=== PATIENT | female | born 1945 | race Caucasian/White ===

== ENCOUNTER 2021-10-15 14:52 | Emergency (ER) | payer OTHER ==
--- OUTSIDE RECORDS SUMMARY | 2021-10-15 14:56 | XMS REPORT | Continuity of Care Document ---
:1945 Author Organization [facility] t Address [address] [place] [address] Care Team Providers Name Role Phone Unavailable Unavailable Unavailable Problems This patient has no known problems. Allergies, Adverse Reactions, Alerts Allergy Allergy Status Severity Reaction(s) Onset Inactive Treating Comm ents Source Name Type Date Date Clinician NO KNOWN Allergy Active SLEH ALLERGIE S Medications This patient has no known medications. Vital Signs Vital Name Observation Time Observation Value Comments Source WEIGHT 2020-05-17 00:00:00 59.058 kg Procedures This patient has no known procedures. Encounters Start End Encounter Admission Attending Care Care Encounter Source Date/Time Date/Time Type Type Clinicians Facility Department ID 2020-05-17 2020-05-17 Outpatient [facility] [id number] [address] [facility] 00:00:00 00:00:00 Results This patient has no known results.
[2021-10-15] MEDS ORDERED: TETANUS & DIPHTHERIA TOX,ADULT 0.5 ML VIAL ONE (15:25)
--- NOTE | 2021-10-15 15:48 | RAD REPORT ---
EXAM DESCRIPTION: CT - CTHCSPWOC - 10/15/2021 3:35 pm CLINICAL HISTORY: Trauma, head and neck injury. fall injury, scalp laceration COMPARISON: No comparisons TECHNIQUE: Axial 5 mm thick images of the head were obtained. Axial 2 mm thick images of the cervical spine were obtained with sagittal and coronal reconstruction images generated and reviewed. All CT scans are performed using dose optimization technique as appropriate and may include automated exposure control or mA/KV adjustment according to patient size. FINDINGS: CT HEAD WITHOUT CONTRAST: Moderate acute subarachnoid hemorrhage is present in the right temporal region. There is likely assoc iated subdural blood along the right middle cranial fossa measuring up to 9 mm in maximum thickness. Subarachnoid hemorrhage is also present on the left posterior frontal region.No measurable midline sh ift is evident.There is a large left posterior scalp hematoma measuring 15 mm in maximum thickness. Chronic sinusitis of the right maxillary antrum with mild expansion seen.The paranasal sinuses and ma stoids are otherwise clear.No skull base fracture seen. No calvarial fracture seen. CT CERVICAL SPINE WITHOUT CONTRAST: No fracture or subluxation.Moderate lower cervical degenerative changes are present.No prevertebral s oft tissues swelling is identified. IMPRESSION: Acute bilateral subarachnoid hemorrhage is present, greater on the right.A subdural samson lisa is likely also present along the right temporal convexity measuring up to 9 mm in thickness. No measurable right to left midline shift evident. No cervical spine fracture. The findings were discussed with Dr. Carreon in the ER On 10/15/2021 at 3:44 p.m. by telephone.
[2021-10-15] MEDS ORDERED: KETAMINE HCL 500 MG/5 ML VIAL ONE (16:06)
[2021-10-15] MEDS ORDERED: LEVETIRACETAM 500 MG/5 ML VIAL IV ONE (16:07)
[2021-10-15] MEDS ORDERED: NA CHLORIDE 0.9% 100 ML ONE (16:08)
[2021-10-15 16:09] LABS: Absolute Lymphocytes (CBC) 1.2 K/uL (0.7-4.9); Hematocrit 36.8 % (36.0-45.0); Lymphocytes % 9.8 % (15.3-44.8); MPV 6.5 fL (7.6-11.3); RBC Red Blood Cell Count 3.82 M/uL (3.86-4.86)
--- NOTE | 2021-10-15 16:09 | ER ---
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 + head ll1 injury and laceration, bleeding controlled. No LOC. Coronavirus screen: Vaccine status: Patient reports receiving the 2nd dose of the covid vaccine. Client denies travel out of the [place] in the last 14 days. At this time, the client does not indicate any symptoms associated with coronavirus-19. Ebola Screen: Patient denies travel to an Ebola-affected area in the 21 days before illness onset. Initial Sepsis Screen: Does the patient meet any 2 criteria? HR > 90 bpm. No. Patient's initial sepsis screen is negative. Does the patient have a suspected source of infection? Yes: Skin breakdown/wound. Risk Assessment: Do you want to hurt yourself or someone else? Patient reports no desire to harm self or others. Onset of symptoms was October 15, 2021. 15:06 Method Of Arrival: Ambulatory ll1 15:06 Acuity: ARBEN 3 ll1 15:35 Care prior to arrival: None. Mechanism of Injury: Fall from standing position. ab2 approximately 5 feet. Trauma event details:. Triage Assessment: 15:30 General: Appears in no apparent distress. Behavior is calm, cooperative, appropriate ab2 for age. Pain: Denies pain. EENT: No deficits noted. No signs and/or symptoms were reported regarding the EENT system. Neuro: Level of Consciousness is awake, alert, obeys commands, Oriented to person, place, time, situation, Appropriate for age Marketing Agent are equal bilaterally Moves all extremities. Gait is steady, Pt state she has not had a fall before. Pt did admit to ETOH use prior to this fall. Neuro: Denies headache. Cardiovascular: Reports None Denies chest pain, shortness of breath, Heart tones S1 S2 present Patient's skin is warm and dry. Respiratory: No deficits noted. Airway is patent Breath sounds are clear bilaterally. Denies shortness of breath. GI: No deficits noted. No signs and/or symptoms were reported involving the gastrointestinal system. Abdomen is flat, round non-distended, Bowel sounds present X 4 quads. Abd is soft and non tender Abd is soft Abd is non tender X 4 quads. : No deficits noted. No signs and/or symptoms were reported regarding the genitourinary system. Derm: Wound noted left adventism. Musculoskeletal: No deficits noted. No signs and/or symptoms reported regarding the musculoskeletal system. Trauma Activation: Alert Physician: ED Physician; Name: ; Notified At: ; Arrived At: Physician: General Surgeon; Name: ; Notified At: ; Arrived At: Physician: Radiology; Name: ; Notified At: ; Arrived At: Physician: Respiratory; Name: ; Notified At: ; Arrived At: Physician: Lab; Name: ; Notified At: ; Arrived At: Historical: - Allergies: 15:07 No Known Allergies; ll1 - PMHx: 15:07 Hypothyroidism; ll1 - PSHx: 15:07 None; ll1 - Immunization history:: Client reports receiving the 2nd dose of the Covid vaccine. - Social history:: Smoking status: Patient reports the use of cigarette tobacco products, smokes one-half pack cigarettes per day. - Immunization history: Last tetanus immunization: unknown. Screenin:28 Abuse screen: Denies threats or abuse. Denies injuries from another. Nutritional ab2 screening: No deficits noted. Tuberculosis screening: No symptoms or risk factors identified. Fall Risk Fall in past 12 months (25 points). No secondary diagnosis (0 pts). No IV (0 pts). Ambulatory Aid- None/Bed Rest/Nurse Assist (0 pts). Gait- Normal/Bed Rest/Wheelchair (0 pts) Mental Status- Oriented to own ability (0 pts). Total Bailey Fall Scale indicates Low Risk Score (25-44 pts). Fall prevention measures have been instituted. Side Rails Up X 2 Placed close to Nursing Station Frequent Obs/Assesments occuring Family Present and informed to notify staff if they need to leave bedside As available Patient and Family Educated on Fall Prevention Program and strategies. Primary Survey: 15:28 NO uncontrolled hemorrhage observed. A: The patient is alert. Airway: patent. ab2 Breathing/Chest: Respiratory pattern: regular. Circulation: Heart tones present. Pulses: palpable right radial artery and left radial artery. Disability Alert. Exposure/Environment: There is no evidence of uncontrolled external bleeding. Obvious injury(ies) are noted at this time: Pt has laceration to left side of scalp. Reassessment Airway Airway Patent Breathing/Chest Respiratory pattern Regular Respiratory effort Spontaneous Unlabored Breath sounds Clear Chest inspection Symmetrical Circulation Heart tones Present Pulses Palpable Color [place] Disability Alert. Secondary Survey: 16:12 HEENT: Head Other Pt has small lac noted L parietal region of her head. Currently ic1 denies headache, blurred vision, or facial droop. Gastrointestinal: No deficits noted. : No deficits noted. Musculoskeletal: No deficits noted. Assessment: 15:37 General: Appears in no apparent distress. Behavior is calm, cooperative, appropriate ab2 for age, Smells of alcohol. Pain: Denies pain. Neuro: No deficits noted. Level of Consciousness is awake, alert, obeys commands, Oriented to person, place, time, situation, Appropriate for age Marketing Agent are equal bilaterally Moves all extremities. Gait is unsteady, Speech is normal, Facial symmetry appears normal. Cardiovascular: No deficits noted. Denies chest pain, shortness of breath, Heart tones S1 S2 present Patient's skin is warm and dry. Respiratory: No deficits noted. Breath sounds are clear Denies cough, shortness of breath. GI: No deficits noted. No signs and/or symptoms were reported involving the gastrointestinal system. Abdomen is flat, non-distended, Bowel sounds present X 4 quads. Abd is soft and non tender X 4 quads. Patient currently denies abdominal pain. : No deficits noted. No signs and/or symptoms were reported regarding the genitourinary system. EENT: No deficits noted. No signs and/or symptoms were reported regarding the EENT system. Derm: Wound noted left adventism. Musculoskeletal: No deficits noted. No signs and/or symptoms reported regarding the musculoskeletal system. Vital Signs: 15:06 BP 169 / 108; Pulse 95; Resp 17; Temp 96.5; Pulse Ox 100% ; Weight 54.88 kg; Height 5 ll1 ft. 7 in. (170.18 cm); Pain 0/10; 16:12 BP 142 / 85; Pulse 84; Resp 18; Pulse Ox 100% on R/A; ic1 16:53 BP 149 / 82; Pulse 81; Resp 18; Pulse Ox 100% ; ic1 17:06 BP 137 / 70; Pulse 91; Resp 17; Pulse Ox 97% on R/A; Pain 2/10; ab2 17:30 BP 140 / 70; Pulse 89; Resp 17; Pulse Ox 98% on R/A; ab2 17:43 BP 139 / 68; Pulse 90; Resp 16; Pulse Ox 98% on R/A; ab2 18:35 BP 159 / 68; Pulse 101; Resp 17; Pulse Ox 98% on R/A; Pain 0/10; ab2 19:00 BP 149 / 69; Pulse 81; Resp 17; Pulse Ox 99% on R/A; Pain 0/10; ab2 19:30 BP 151 / 81; Pulse 79; Resp 17; Pulse Ox 99% on R/A; Pain 0/10; ab2 19:45 BP 161 / 81; Pulse 79; Resp 17; Pulse Ox 100% on R/A; Pain 0/10; ab2 20:00 BP 157 / 77; Pulse 78; Resp 17; Pulse Ox 99% on R/A; Pain 0/10; ab2 20:30 BP 160 / 76; Pulse 83; Resp 16; Pulse Ox 100% on R/A; Pain 0/10; ab2 15:06 Body Mass Index 18.95 (54.88 kg, 170.18 cm) ll1 Rios Coma Score: 15:35 Eye Response: spontaneous(4). Verbal Response: oriented(5). Motor Response: obeys ab2 commands(6). Total: 15. Trauma Score (Adult): 15:35 Eye Response: spontaneous(1); Verbal Response: oriented(1); Motor Response: obeys ab2 commands(2); Systolic BP: > 89 mm Hg(4); Respiratory Rate: 10 to 29 per min(4); Temple Score: 15; Trauma Score: 12 ED Course: 14:56 Patient arrived in ED. mr 15:07 Triage completed. ll1 15:08 Arm band placed on Patient placed in an exam room, on a stretcher. ll1 15:09 Erasmo Sanchez NP is PHCP. pm1 15:09 Dheeraj Hua MD is Attending Physician. pm1 15:27 Aditya Hernandez is Primary Nurse. ab2 15:35 CT Head C Spine In Process Unspecified. EDMS 15:36 Patient has correct armband on for positive identification. Bed in low position. Call ab2 light in reach. Side rails up X2. Adult w/ patient. 15:36 No provider procedures requiring assistance completed. ab2 15:37 Patient maintains SpO2 saturation greater than 95% on room air. Thermoregulation: warm ab2 blanket given to patient. 16:00 CMP Sent. ic1 16:00 CBC with Diff Sent. ic1 16:00 PT-INR Sent. ic1 16:00 COVID-19 (Coronavirus) Document "Date of Onset" if Symptomatic Sent. ic1 16:00 Inserted saline lock: 20 gauge in right antecubital area, using aseptic technique. ic1 Blood collected. 17:45 initiated transfer to [facility], pt accepted in transfer to [facility] by dr judah matt, admin approval given by Jayda Heredia RN. 20:50 Report given to EMS at bedside. Warm blanket given. Daughter at bedside. Daughter to ab2 follow patient during transfer. 20:51 Report given to Marcia at [facility] ED. ab2 Administered Medications: 15:27 Drug: Tetanus-Diphtheria Toxoid Adult 0.5 ml {Watch Dial Stoner: [place]. Exp: ic1 02/16/2023. Lot #: [id number]. } Route: IM; Site: left deltoid; 16:10 Drug: Keppra (levETIRAcetam) 1000 mg Route: IV; Rate: calculated rate; Site: right ic1 antecubital; 16:47 Drug: Lidocaine (1 %) 5 ml {Note: given per Chelo's, PROCESS DEVELOPMENT MANAGER.} Volume: 5 ml; Route: jh5 Infiltration; 18:10 Drug: NS 0.9% 1000 ml Route: IV; Rate: 100 ml/hr; Site: right antecubital; ic1 Intake: 15:35 PO: 0ml; Total: 0ml. ab2 Outcome: 16:08 ER care complete, transfer ordered by . pm1 20:51 Patient left the ED. mw2 Signatures: Dispatcher [employer] EDMS Ximena Orantes Mary mr DanielErasmo, PROCESS DEVELOPMENT MANAGER PROCESS DEVELOPMENT MANAGER pm1 Geraldine Pike mw2 Nino Barry RN RN 1 Jemima Lara RN RN 5 Ana Rico RN RN ic1 Bleininger, Aditya ab2
--- NOTE | 2021-10-15 16:09 | EDPHYS ---
Physician Documentation [facility] Name: Casi Dunn Age: 76 yrs Sex: Female : 1945 Arrival Date: 10/15/2021 Time: 14:56 Bed 25 Private MD: ED Physician Dheeraj Hua HPI: 10/15 15:16 This 76 yrs old Female presents to ER via Ambulatory with complaints of Fall Injury. pm1 15:16 Onset: The symptoms/episode began/occurred just prior to arrival. Associated injuries: pm1 The patient sustained injury to the head, laceration, of the left side of the back of head. The patient has not experienced similar symptoms in the past. The patient has not recently seen a physician. Patient was walking down stairs in her home after drinking alcohol and she slipped and hit her head on the stairs. No LOC or neck pain. Patient was able to get up after fall. Presenting to the ER with laceration to scalp and headache. Historical: - Allergies: 15:07 No Known Allergies; ll1 - PMHx: 15:07 Hypothyroidism; ll1 - PSHx: 15:07 None; ll1 - Immunization history:: Client reports receiving the 2nd dose of the Covid vaccine. - Social history:: Smoking status: Patient reports the use of cigarette tobacco products, smokes one-half pack cigarettes per day. - Immunization history: Last tetanus immunization: unknown. ROS: 15:16 Constitutional: Negative for fever, chills, and weight loss, Cardiovascular: Negative pm1 for chest pain, palpitations, and edema, Respiratory: Negative for shortness of breath, cough, wheezing, and pleuritic chest pain, Abdomen/GI: Negative for abdominal pain, nausea, vomiting, diarrhea, and constipation, MS/Extremity: Negative for injury and deformity. 15:16 Eyes: Negative for injury, pain, redness, and discharge, ENT: Negative for injury, pain, and discharge. 15:16 Neck: Negative for pain with movement, pain at rest, tenderness, bony tenderness. 15:16 Skin: Positive for laceration(s), of the left side of the back of head. 15:16 Neuro: Positive for headache, Negative for dizziness, numbness, tingling, weakness. 15:16 All other systems are negative. Exam: 15:16 Constitutional: This is a well developed, well nourished patient who is awake, alert, pm1 and in no acute distress. 15:16 Back: No spinal tenderness. No costovertebral tenderness. Full range of motion. 15:16 Head/face: Noted is no obvious of injury or deformity except contusion, that is superficial, of the left side of the back of head, a laceration(s), of the left side of the back of head, tenderness, of the left side of the back of head. 15:16 Eyes: Exam is negative for acute changes, Periorbital structures: appear normal, Pupils: no acute changes, normal size, normal reaction to light, Extraocular movements: no acute changes, Conjunctiva: no acute changes, no injection, Sclera: no acute changes, icterus, is not appreciated. 15:16 ENT: Exam is negative for acute changes, External ear(s): are unremarkable, Ear canal(s): are normal, TM's: are normal, Mouth: Lips: normal, moist, Oral mucosa: normal, pink and intact, moist. 15:16 Neck: External neck: no acute changes, C-spine: vertebral tenderness, is not appreciated. 15:16 Chest/axilla: Exam negative for Inspection: normal, Palpation: is normal, no crepitus, no tenderness. 15:16 Cardiovascular: Exam negative for acute changes, Rate: normal, Rhythm: regular, Pulses: no pulse deficits are appreciated. 15:16 Respiratory: Exam negative for acute changes, respiratory distress, shortness of breath, Breath sounds: are clear throughout. 15:16 Abdomen/GI: Inspection: abdomen appears normal, Palpation: abdomen is soft and non-tender, in all quadrants. 15:16 Skin: Appearance: normal except for affected area, injury, laceration(s), the wound is approximately 2 cm(s), of the left side of the back of head, that can be described as clean, no foreign body, irregular. 15:16 Neuro: Exam negative for acute changes, Orientation: is normal, Mentation: is normal, Cranial nerves: CN II- XII are normal as tested, Cerebellar function: normal finger to nose testing, heel to thomas testing is normal, Motor: moves all fours, strength is 5/5 in all extremities, Sensation: no obvious gross deficits. Vital Signs: 15:06 BP 169 / 108; Pulse 95; Resp 17; Temp 96.5; Pulse Ox 100% ; Weight 54.88 kg; Height 5 ll1 ft. 7 in. (170.18 cm); Pain 0/10; 16:12 BP 142 / 85; Pulse 84; Resp 18; Pulse Ox 100% on R/A; ic1 16:53 BP 149 / 82; Pulse 81; Resp 18; Pulse Ox 100% ; ic1 17:06 BP 137 / 70; Pulse 91; Resp 17; Pulse Ox 97% on R/A; Pain 2/10; ab2 17:30 BP 140 / 70; Pulse 89; Resp 17; Pulse Ox 98% on R/A; ab2 17:43 BP 139 / 68; Pulse 90; Resp 16; Pulse Ox 98% on R/A; ab2 18:35 BP 159 / 68; Pulse 101; Resp 17; Pulse Ox 98% on R/A; Pain 0/10; ab2 19:00 BP 149 / 69; Pulse 81; Resp 17; Pulse Ox 99% on R/A; Pain 0/10; ab2 19:30 BP 151 / 81; Pulse 79; Resp 17; Pulse Ox 99% on R/A; Pain 0/10; ab2 19:45 BP 161 / 81; Pulse 79; Resp 17; Pulse Ox 100% on R/A; Pain 0/10; ab2 20:00 BP 157 / 77; Pulse 78; Resp 17; Pulse Ox 99% on R/A; Pain 0/10; ab2 20:30 BP 160 / 76; Pulse 83; Resp 16; Pulse Ox 100% on R/A; Pain 0/10; ab2 15:06 Body Mass Index 18.95 (54.88 kg, 170.18 cm) ll1 Rios Coma Score: 15:35 Eye Response: spontaneous(4). Verbal Response: oriented(5). Motor Response: obeys ab2 commands(6). Total: 15. Trauma Score (Adult): 15:35 Eye Response: spontaneous(1); Verbal Response: oriented(1); Motor Response: obeys ab2 commands(2); Systolic BP: > 89 mm Hg(4); Respiratory Rate: 10 to 29 per min(4); [place] Score: 15; Trauma Score: 12 Laceration: 17:18 Wound Repair of 2cm ( 0.8in ) subcutaneous laceration to left side of the back of head. pm1 Irregularly shaped.. Distal neuro/vascular/tendon intact. Anesthesia: Local anesthetic administered with 3 mls of 1% lidocaine. Wound prep: Extensive cleansing with hibiclenz by me, Wound irrigation with saline by me, Wound explored extensively, Copious irrigation. Skin closed with 5 4-0 Prolene using simple sutures and sterile technique. Dressed with 4x4's. Patient tolerated well. MDM: 15:15 Patient medically screened. pm1 15:50 Counseling: I had a detailed discussion with the patient and/or guardian regarding: the pm1 historical points, exam findings, and any diagnostic results supporting the discharge/admit diagnosis, radiology results, the need to transfer to another facility, [facility] does not immediately have the required specialist, Transfer required due to traumatic brain injury, speciality required. 16:03 Data reviewed: vital signs. Data interpreted: Pulse oximetry: on room air is 100 %. pm1 Interpretation: normal. 16:29 Physician consultation: Marty Mckee MD regarding regarding transfer, patient's pm1 condition, and will see patient ER to ER transfer. 10/15 15:43 Order name: PT-INR; Complete Time: 16:20 pm1 10/15 15:43 Order name: CBC with Diff; Complete Time: 16:20 pm1 10/15 15:16 Order name: CT Head C Spine; Complete Time: 15:50 pm1 10/15 15:43 Order name: CMP; Complete Time: 16:33 pm1 10/15 15:43 Order name: COVID-19 (Coronavirus) Document "Date of Onset" if Symptomatic pm10/15 15:16 Order name: Wound Care pm10/15 15:43 Order name: IV Saline Lock; Complete Time: 16:00 pm10/15 15:52 Order name: NPO; Complete Time: 16:00 pm1 10/15 16:34 Order name: Dressing - Wound; Complete Time: 16:47 pm1 10/15 16:34 Order name: Gloves, Sterile; Complete Time: 16:47 pm1 10/15 16:34 Order name: Prolene, Sutures; Complete Time: 16:47 pm10/15 16:34 Order name: Setup Suture Tray; Complete Time: 16:47 pm1 Administered Medications: 15:27 Drug: Tetanus-Diphtheria Toxoid Adult 0.5 ml {Heavy Duty Custodian: Popdust. Exp: ic1 02/16/2023. Lot #: [id number]. } Route: IM; Site: left deltoid; 16:10 Drug: Keppra (levETIRAcetam) 1000 mg Route: IV; Rate: calculated rate; Site: right ic1 antecubital; 16:47 Drug: Lidocaine (1 %) 5 ml {Note: given per Nikolai GLASS FITTER.} Volume: 5 ml; Route: jh5 Infiltration; 18:10 Drug: NS 0.9% 1000 ml Route: IV; Rate: 100 ml/hr; Site: right antecubital; ic1 Disposition: 10/16 07:07 Co-signature as Attending Physician, Dheeraj Hua MD. rn Disposition Summary: 10/15/21 16:08 Transfer Ordered Transfer Location: [facility] pm1 Reason: Higher level of care pm1 Condition: Stable pm1 Problem: new pm1 Symptoms: are unchanged pm1 Accepting Physician: Jimmy(10/15/21 20:51) mw2 Diagnosis - Traumatic subarachnoid hemorrhage pm1 - Traumatic subdural hemorrhage pm1 Forms: - Medication Reconciliation Form pm1 - SBAR form pm1 Signatures: Dispatcher [employer] EDDheeraj Arias MD MD rn Marinas, Patrick, NP GLASS FITTER pm1 Geraldine Pike mw2 Nino Barry RN RN ll1 Jemima Lara RN RN jh5 Ana Rico RN RN ic1 Aditya Hernandez2 Corrections: (The following items were deleted from the chart) 10/15 17:20 16:08 MD [email or web address] pm1 20:51 17:20 Jimmy pm1 mw2
[2021-10-15 16:12] LABS: Protime INR 0.94
[2021-10-15 16:28] LABS: Albumin 3.8 g/dL (3.4-5.0); Bilirubin Total 0.4 mg/dL (0.2-1.0); Potassium 3.3 mmol/L (3.5-5.1); Protein, Total 8.1 g/dL (6.4-8.2)
[2021-10-15] MEDS ORDERED: ONDANSETRON 4 MG/2 ML VIAL ONE (16:57)
[2021-10-15] MEDS ORDERED: NA CHLORIDE 0.9% 1,000 ML ONE (17:34)
[2021-10-15 21:29] VITALS: TEMP 96.5
[2021-10-15 21:46] VITALS: BP 160/76; O2SAT 100
== END 2021-10-15 20:51 | disposition short-term general hospital (02) ==
LOC: ER 14:52
PROC: 0JQ00ZZ Repair Scalp Subcutaneous Tissue and Fascia, Open Approach (ICD-10-PCS; principal; 2021-10-15)
DX: S06.6X0A Traumatic subarachnoid hemorrhage without loss of consciousness, initial encounter (principal); S06.5X0A Traumatic subdural hemorrhage without loss of consciousness, initial encounter; S01.01XA Laceration without foreign body of scalp, initial encounter; W10.8XXA Fall (on) (from) other stairs and steps, initial encounter; Z23 Encounter for immunization; Z20.822 Contact with and (suspected) exposure to COVID-19; F17.210 Nicotine dependence, cigarettes, uncomplicated
CPT/HCPCS: 85025; 36415; 85610; 80053; 70450; 72125; 90471; 90714; 96374; 99284; 12001; U0002; J1953; J7030; J2405

== ENCOUNTER 2024-10-11 15:10 | Emergency (ER) | payer OTHER ==
[2024-10-11] MEDS ORDERED: ONDANSETRON 4 MG/2 ML VIAL ONE (15:23)
[2024-10-11] MEDS ORDERED: Nicardipine/NS 25 MG/250 ML KIT IV ONE (15:27)
[2024-10-11 15:48] LABS: Absolute Eosinophils 0.3 K/uL (0-0.5); Absolute Lymphocytes (CBC) 4.6 K/uL (0.7-4.9); Absolute Monocytes 0.7 K/uL (0.1-1.3); Absolute Neutrophil 8.7 K/uL (1.8-8.0); Basophils % 0.3 % (0-1.3); Eosinophils % 2.2 % (0-4.4); Hematocrit 37.6 % (36.0-45.0); Hemoglobin 12.6 g/dL (12.0-15.0); Lymphocytes % 32.3 % (15.3-44.8); MCH 27.6 pg (27.0-35.0); MCHC 33.4 g/dL (32.0-36.0); MCV 82.6 fL (80-100); Monocytes % 4.8 % (3.3-12.3); Neutrophils % 60.4 % (41.7-73.7); Nucleated Red Blood Cells % 0.1 % (0-0); Platelets 401 thou/uL (152-406); RBC Red Blood Cell Count 4.56 M/uL (3.86-4.86); Red Cell Distribution Width 13.5 % (12.1-15.2)
[2024-10-11 15:51] LABS: PT Prothrombin Time 11.4 SECONDS (9.4-12.5); PTT, Activated Partial Thromb 29.4 SECONDS (24.3-36.9); Protime INR 1.02
[2024-10-11 16:05] LABS: Anion Gap 10.3 mEq/L (5.0-15.0); Potassium 3.3 mEq/L (3.5-5.1); Troponin High Sensitivity 12.7 pg/mL (<58.9)
--- NOTE | 2024-10-11 16:41 | EDPHYS ---
Physician Documentation [facility] Name: Casi Dunn Age: 79 yrs Sex: Female : 1945 Arrival Date: 10/11/2024 Time: 15:10 Bed 4 Private MD: ED Physician Lena Delgado HPI: 10/11 16:16 This 79 yrs old Female presents to ER via Ambulatory with complaints of Head gb1 Injury Without LOC-Adult, Vomiting, Altered Mental Status. 16:16 79-year-old female was watching the divorce court today with her daughter and she got gb1 up to get the peanuts off the table and she fell backwards. Patient has a history of 2 intracranial bleeds in the past. Her daughter and son-in-law are here patient's daughter has DURABLE POWER OF RESIDENT CARE ASSOCIATE and states the patient is unable to obtain history due to mental status patient's daughter is making medical decisions for her as the power of civil attorney. Patient has a history of alcoholism in the past, no recent alcohol ingestion. She fell backwards and hit her head on the linoleum tile floor. Patient was vomiting and became altered mental status with deterioration en route to the emergency department.. Historical: - Allergies: 15:16 No Known Allergies; ld1 - PMHx: 15:16 Hypothyroidism; TBI (Hypothyroidism); ld1 - Immunization history:: Adult Immunizations up to date. - Infectious Disease History:: Denies. - Social history:: Smoking status: Patient denies any tobacco usage or history of. Exam: 16:24 Constitutional: This is a well developed, well nourished patient who is lethargic and gb1 in acute distress. She is actively vomiting and has a rightward fixed gaze. She is not moving the left side of her body. Eyes: Pupils equal round and reactive to light, extra-ocular motions intact. Lids and lashes normal. Conjunctiva and sclera are non-icteric and not injected. Cornea within normal limits. Periorbital areas with no swelling, redness, or edema. ENT: Nares patent. No nasal discharge, no septal abnormalities noted. Tympanic membranes are normal and external auditory canals are clear. Oropharynx with no redness, swelling, or masses, exudates, or evidence of obstruction, uvula midline. Mucous membranes moist. Neck: Trachea midline, no thyromegaly or masses palpated, and no cervical lymphadenopathy. Supple, full range of motion without nuchal rigidity, or vertebral point tenderness. No Meningismus. Chest/axilla: Normal chest wall appearance and motion. Nontender with no deformity. No lesions are appreciated. Cardiovascular: Tachycardic rate and rhythm with a normal S1 and S2. No gallops, murmurs, or rubs. Normal PMI, no JVD. No pulse deficits. Respiratory: Lungs have equal breath sounds bilaterally, clear to auscultation and percussion. No rales, rhonchi or wheezes noted. No increased work of breathing, no retractions or nasal flaring. Abdomen/GI: Soft, non-tender, with normal bowel sounds. No distension or tympany. No guarding or rebound. No evidence of tenderness throughout. Skin: Warm, dry with normal turgor. Normal color with no rashes, no lesions, and no evidence of cellulitis. Neuro: As previously stated in the general exam patient has a right fixed lateral gaze with no movement of the left upper or lower extremity. She is not responsive to her voice. She is responsive to painful stimuli. Vital Signs: 15:19 BP 192 / 93; Pulse 106; Weight 55.34 kg; ld1 15:19 Resp 29; Temp 98.3(TE); Height 5 ft. 4 in. ; Pain 0/10; ld1 15:47 BP 198 / 87; Pulse 103; ld1 15:52 BP 185 / 73; Pulse 108; Resp 24; Pulse Ox 92% on R/A; ld1 15:55 BP 162 / 84; Pulse 108; Resp 24; Pulse Ox 93% on R/A; ld1 16:02 BP 185 / 73; Pulse 111; Resp 26; Pulse Ox 92% on R/A; ld1 16:11 BP 132 / 72; Pulse 120; Resp 27; Pulse Ox 91% on R/A; ld1 16:27 BP 144 / 61; Pulse 98; Resp 21; Pulse Ox 95% on 2 lpm NC; ld1 16:34 BP 133 / 50; Pulse 92; Resp 19; Pulse Ox 96% on 2 lpm NC; ld1 16:51 BP 128 / 55; ld1 15:19 Pain Scale: Adult ld1 Rios Coma Score: 15:20 Eye Response: to voice(3). Motor Response: withdraws from pain(4). Verbal Response: ld1 inappropriate words(3). Total: 10. 16:24 Eye Response: spontaneous(4). Motor Response: localizes pain(5). Verbal Response: gb1 incomprehensible(2). Total: 11. 16:37 Eye Response: none(1). Motor Response: withdraws from pain(4). Verbal Response: ld1 none(1). Total: 6. MDM: 15:28 Medical Screening Exam initiated gb 16:24 Differential diagnosis: Intracranial bleed- subarachnoid, intracerebral, Skull gb1 fracture, hypertensive emergency. Data reviewed: vital signs, nurses notes, lab test result(s). ED course: 79-year-old female with altered mental status concern for intracranial hemorrhage versus subarachnoid hemorrhage likely secondary to hypertensive emergency. Patient has been deemed DNR/DNI by her daughter at the bedside who is the DURABLE POWER OF RESIDENT CARE ASSOCIATE. I confirm with her that no breathing tube will be placed in she would not be placed on life support. Patient was accepted without conference to [facility] in the [facility] secondary to our CT scanner being out of commission. I suspect that the patient has a history of intracranial bleed but this is likely a similar symptom presentation. Patient will not be intubated and an [id number] DNI DNR was signed here by her daughter. I have started her on Cardene drip IV titrated to a blood pressure of systolic of 160. Patient was accepted to the [facility] at [facility] by Dr. Topete.. 10/11 15:31 Order name: Basic Metabolic Panel; Complete Time: 16:16 10/11 15:31 Order name: CBC with Diff; Complete Time: 16:16 10/11 15:31 Order name: High Sensitivity Troponin; Complete Time: 16:16 10/11 15:31 Order name: Protime (+inr); Complete Time: 16:16 10/11 15:31 Order name: Ptt, Activated; Complete Time: 16:16 10/11 15:31 Order name: Stroke CXR 1 View 10/11 15:31 Order name: Accucheck; Complete Time: 15:34 10/11 15:31 Order name: Cardiac monitoring; Complete Time: 15:34 10/11 15:31 Order name: EKG - Nurse/Tech; Complete Time: 16:00 10/11 15:31 Order name: IV Saline Lock; Complete Time: 15:34 10/11 15:31 Order name: Labs collected and sent; Complete Time: 16:10/11 15:31 Order name: NPO; Complete Time: 15:34 10/11 15:31 Order name: O2 Per Protocol; Complete Time: 15:10/11 15:31 Order name: O2 Sat Monitoring; Complete Time: 15:10/11 15:31 Order name: Stroke Swallow Screen; Complete Time: :34 Administered Medications: 15:55 Drug: niCARdipine IV 5 mg/hr IV at calculated rate See Administration Instructions; ld1 (Standard concentration 25 mg / 250 mL NS); Recommended max rate 15 mg/hr; Titrate 2.5 mg/hr as often as every 15 minutes to achieve goal (see titration policy); Goal parameter SBP less than 160 mmHg Route: IV; Rate: calculated rate; Site: right wrist; 17:06 Follow up: Response: No adverse reaction; IV Status: Infusion continued upon transfer ld1 Disposition Summary: 10/11/24 16:41 Transfer Ordered Notes: Transfer Location: [facility] gb1 Reason: Higher level of care gb1 Condition: Critical gb1 Problem: new gb1 Symptoms: have worsened gb1 Accepting Physician: Dr. Butts(10/11/24 17:05) ld1 Diagnosis - Nontraumatic intracranial hemorrhage, unspecified gb1 - Other secondary hypertension gb1 - Altered mental status, unspecified gb1 Discharge Instructions: - Discharge Summary Sheet ss Forms: - SBAR form bd - Work release form ss - Medication Reconciliation Form gb1 Critical care time excluding procedures: 16:24 Critical care time: Bedside Care: 100 minutes, Consultation: 45 minutes, Family gb1 Intervention: 30 minutes. Total time: 175 minutes Signatures: Dispatcher [employer] EDPriyanka Almanzar RN RN ld1 Lena Delgado MD MD gb1 Corrections: (The following items were deleted from the chart) 15:19 15:19 Head C Spine MPR Wo Con+CT.RAD.BRZ ordered. EDMS EDMS 15:19 15:19 Head C Spine MPR Wo Con+CT.RAD.BRZ ordered. EDMS EDMS 15:32 15:32 CT-STROKE BRAIN W/O CONTRAST+CT.RAD.BRZ ordered. EDMS EDMS 15:32 15:32 Chest Single View+RAD.RAD.BRZ ordered. EDMS EDMS 16:25 16:16 79-year-old female was watching the [place] today with her daughter and she gb1 got up to get the penis off the table and she fell backwards.. gb1 17:05 16:41 Dr. Butts gb1 ld1
--- NOTE | 2024-10-11 16:41 | ER ---
Nurse's Notes [facility] Name: Casi Dunn Age: 79 yrs Sex: Female : 1945 Arrival Date: 10/11/2024 Time: 15:10 Bed 4 Private MD: Diagnosis: Nontraumatic intracranial hemorrhage, unspecified;Other secondary hypertension;Altered mental status, unspecified Presentation: 10/11 15:16 Chief complaint: EMS states: toned out to patient home for fall injury. Unknown reason ld1 for fall. Pt AMS - back of head hit ground. N/V on scene with EMS. Negative LOC. Family reports fall at 1430. Coronavirus screen: At this time, the client does not indicate any symptoms associated with coronavirus-19. Ebola Screen: No symptoms or risks identified at this time. 15:16 Method Of Arrival: Ambulatory ld1 15:19 Initial Sepsis Screen: Does the patient meet any 2 criteria? No. Patient's initial ld1 sepsis screen is negative. Does the patient have a suspected source of infection? No. Patient's initial sepsis screen is negative. Risk Assessment: Do you want to hurt yourself or someone else? Patient reports no desire to harm self or others. Onset of symptoms was October 11, 2024 at 15:20. 15:19 Acuity: ARBEN 2 ld1 Triage Assessment: 15:36 General: Appears distressed, uncomfortable, Behavior is drowsy, flat, inappropriate for ld1 age. Pain: Unable to use pain scale. Does not appear to understand pain scale. EENT: No signs and/or symptoms were reported regarding the EENT system. Neuro: Level of Consciousness is confused, Oriented to none. Cardiovascular: Capillary refill < 3 seconds Patient's skin is warm and dry. Rhythm is sinus tachycardia. Respiratory: Airway is patent Respiratory effort is even, unlabored. GI: Abdomen is flat, non-distended. GI: Pt is actively vomiting undigested food. : No signs and/or symptoms were reported regarding the genitourinary system. Derm: No signs and/or symptoms reported regarding the dermatologic system. Musculoskeletal: No signs and/or symptoms reported regarding the musculoskeletal system. Historical: - Allergies: 15:16 No Known Allergies; ld1 - PMHx: 15:16 Hypothyroidism; TBI (Hypothyroidism); ld1 - Immunization history:: Adult Immunizations up to date. - Infectious Disease History:: Denies. - Social history:: Smoking status: Patient denies any tobacco usage or history of. Screenin:34 [facility] ED Fall Risk Assessment (Adult) History of falling in the last 3 months, ld1 including since admission Yes- single mechanical fall (1 pt) Confusion or Disorientation Yes (5 pts) Intoxicated or Sedated No (0 pts) Impaired Gait Yes (1 pt) Mobility Assist Device Used No (0 pt) Altered Elimination Yes (1 pt) Score/Fall Risk Level 3 or more points = High Risk Oriented to surroundings, Maintained a safe environment, Educated pt \T\ family on fall prevention, incl call for assistance when getting out of bed, Assessed \T\ reinforced patient's understanding of fall precautions, Provided non-skid footwear, Hourly rounding (assess needs \T\ fall precautionary measures) done, Used ambulatory aids as needed (educated on \T\ assisted with), Used gait belt as appropriate Implemented a Fall Risk Plan of Care, Apply high fall risk patient identification: yellow non skid footwear/ fall signage, Placed fall mat w/ non beveled edge next to bed, Activated bed/chair alarm, Remained w/in arm's length of patient and in sight while toileting, Offered frequent toileting (1:1 observation), Remained with patient while ambulating, Utilized family, sitter, or virtual director money as indicated. Abuse screen: Denies threats or abuse. Denies injuries from another. Nutritional screening: No deficits noted. Tuberculosis screening: No symptoms or risk factors identified. [place] Swallow Protocol Exclusion Criteria: Unable to remain alert for testing: Yes. Assessment: 15:24 Reassessment: Notified ERP of decline in patient status. Pt unable to verify name and ld1 . ERP aware at bedside. 15:25 Reassessment: Pt to CT. ld1 16:10 Reassessment: Pt back from CT. ERP at bedside. Changes noted to patients cardiac ld1 rhythm. Dr. Delgado aware. Pt dry heaving/vomiting. 16:49 Reassessment: No changes from previously documented assessment. Reassessment: ld1 [facility] at bedside with patient and family receiving DNR paperwork. Neuro: Level of Consciousness is unresponsive, Oriented to none. Respiratory: Airway is patent Respiratory effort is even, unlabored. Vital Signs: 15:19 BP 192 / 93; Pulse 106; Weight 55.34 kg; ld1 15:19 Resp 29; Temp 98.3(TE); Height 5 ft. 4 in. ; Pain 0/10; ld1 15:47 BP 198 / 87; Pulse 103; ld1 15:52 BP 185 / 73; Pulse 108; Resp 24; Pulse Ox 92% on R/A; ld1 15:55 BP 162 / 84; Pulse 108; Resp 24; Pulse Ox 93% on R/A; ld1 16:02 BP 185 / 73; Pulse 111; Resp 26; Pulse Ox 92% on R/A; ld1 16:11 BP 132 / 72; Pulse 120; Resp 27; Pulse Ox 91% on R/A; ld1 16:27 BP 144 / 61; Pulse 98; Resp 21; Pulse Ox 95% on 2 lpm NC; ld1 16:34 BP 133 / 50; Pulse 92; Resp 19; Pulse Ox 96% on 2 lpm NC; ld1 16:51 BP 128 / 55; ld1 15:19 Pain Scale: Adult ld1 Lyme Coma Score: 15:20 Eye Response: to voice(3). Motor Response: withdraws from pain(4). Verbal Response: ld1 inappropriate words(3). Total: 10. 16:24 Eye Response: spontaneous(4). Motor Response: localizes pain(5). Verbal Response: gb1 incomprehensible(2). Total: 11. 16:37 Eye Response: none(1). Motor Response: withdraws from pain(4). Verbal Response: ld1 none(1). Total: 6. ED Course: 15:12 Patient arrived in ED. bd 15:16 Priyanka Manrique, RN is Primary Nurse. ld1 15:19 Arm band placed on right wrist. ld1 15:19 Maintain EMS IV. Dressing intact. Good blood return noted. Site clean \T\ dry. Gauge \T\ ld 1 site: 20G LAC. 15:20 Triage completed. ld1 15:21 Lena Delgado MD is Attending Physician. gb1 15:34 Patient has correct armband on for positive identification. Placed in gown. Bed in low ld1 position. Call light in reach. Side rails up X2. township supervisor on. Pulse ox on. NIBP on. Door closed. Noise minimized. Warm blanket given. 15:54 Inserted saline lock: 18 gauge in right forearm, using aseptic technique. Flushed with zm 10 mL NS. 16:17 initiated transfer to [facility]. bd 16:21 Stroke CXR 1 View In Process Unspecified. EDMS 17:05 No provider procedures requiring assistance completed. Patient transferred, IV remains ld1 in place. Administered Medications: 15:55 Drug: niCARdipine IV 5 mg/hr IV at calculated rate See Administration Instructions; ld1 (Standard concentration 25 mg / 250 mL NS); Recommended max rate 15 mg/hr; Titrate 2.5 mg/hr as often as every 15 minutes to achieve goal (see titration policy); Goal parameter SBP less than 160 mmHg Route: IV; Rate: calculated rate; Site: right wrist; 17:06 Follow up: Response: No adverse reaction; IV Status: Infusion continued upon transfer ld1 Medication: 17:05 VIS not applicable for this client. ld1 Outcome: 16:41 ER care complete, transfer ordered by . gb1 17:05 Transferred by helicopter to [facility], ld1 17:05 Condition: unchanged 17:05 Instructed on the need for transfer, 17:05 Patient left the ED. ld1 Signatures: Dispatcher [employer] EDMS Ximena Orantes Lauren, RN RN ld1 Sandra Conte Gina, MD MD gb1 Corrections: (The following items were deleted from the chart) 15:20 15:16 Chief complaint: EMS states: toned out to patient home for fall injury. Unknown ld1 reason for fall. Pt AMS - back of head hit ground. N/V on scene with EMS. ld1
[2024-10-11 17:20] VITALS: TEMP 98.3
[2024-10-11 17:31] VITALS: O2SAT 96
[2024-10-11 17:33] VITALS: BP 128/55
--- NOTE | 2024-10-11 17:43 | RAD REPORT ---
Procedure: Chest Single View HISTORY: Shortness of breath COMPARISON: none FINDINGS: The lungs appear clear of acute infiltrate. No significant pleural effusion noted. The heart is normal size. IMPRESSION: No acute abnormality is displayed.
--- NOTE | 2024-10-18 11:08 | EKG ---
Test Date: 2024-10-11 Test Time: 15:19:46 Continuous Linter Drier Operator: SHANA MEASUREMENT RESULTS: Intervals: Rate: 102 LA: 136 QRSD: 118 QT: 380 QTc: 495 [place]: P: 59 LA: 136 QRS: 83 T: 54 INTERPRETIVE STATEMENTS: Sinus tachycardia and premature ventricular complexes or fusion complexes Nonspecific ST and T wave abnormality Abnormal ECG No previous ECG available for comparison Electronically Signed On 10-18-24 10:59:35 WORLD DESIGNER by Jimenez Lindsay
--- NOTE | 2024-10-18 11:08 | EKG ---
Test Date: 2024-10-11 Test Time: 15:59:17 Connie Cleaner: SHANA MEASUREMENT RESULTS: Intervals: Rate: 109 ID: [id number] QRSD: 136 QT: 378 QTc: 509 [place]: P: 88 ID: [id number] QRS: 85 T: 63 INTERPRETIVE STATEMENTS: Sinus tachycardia Right bundle branch block Abnormal ECG Compared to ECG 10/11/2024 15:19:46 Right bundle-branch block now present Fusion complex(es) no longer present Ventricular premature complex(es) no longer present ST (T wave) deviation no longer present Electronically Signed On 10-18-24 10:59:23 ICE GUARD SKATING RINK by Jimenez Lindsay
== END 2024-10-11 17:05 | disposition short-term general hospital (02) ==
LOC: ER 15:10
DX: I62.9 Nontraumatic intracranial hemorrhage, unspecified (principal); R11.10 Vomiting, unspecified; R41.82 Altered mental status, unspecified; I15.8 Other secondary hypertension
CPT/HCPCS: 96365; 93005 ×2; 85025; 80048; 36415; 85610; 85730; 84484; 71045; 99285; J2405